=== PATIENT | female | born 1980 | race Caucasian/White ===

== ENCOUNTER 2016-05-19 07:14 | Inpatient (IN) | payer BC ==
[2016-05-18 14:35] VITALS: BMI 27.7
[2016-05-19] MEDS ORDERED: ceFAZolin 2 GM in SODIUM CHLORIDE 0.9% 100 ML IVPB ONE (10:24)
[2016-05-19] MEDS ORDERED: CITRIC ACID-SODIUM CITRATE 15 ML CUP PO ONE (10:24)
[2016-05-19] MEDS ORDERED: LACTATED RINGERS 1,000 ML IV SCH (10:30)
[2016-05-19 10:51] LABS: Basophils # (A) 0.1 k/uL (0-0.2); Basophils % (A) 1 %; CH 31.6; CHCM 33.9; Eosinophils # (A) 0.1 k/uL (0-0.7); Eosinophils % (A) 2 %; HCT 35.7 % (34.0-46.0); HDW 2.96; Luc # (Auto) 0.16; Luc % (Auto) 2; Lymphocytes # (A) 1.5 k/uL (1.0-4.8); Lymphocytes % (A) 17 %; MCH 31.6 pg (25.0-35.0); MCHC 33.6 g/dL (31.0-37.0); MCV 93.9 fL (80.0-100.0); Mean Platelet Volume 8.1; Monocytes # (A) 0.4 k/uL (0-1.0); Monocytes % (A) 5 %; Neutrophils # (A) 6.6 k/uL (1.3-7.7); Neutrophils % (A) 74 %; RBC 3.81 m/uL (3.80-5.40); RDW 13.6 % (11.5-15.5); WBC 8.9 k/uL (3.8-10.6); WBC (Perox) 9.77
--- NOTE | 2016-05-19 12:11 | P.HPOB ---
History of Present Illness H&P Date: 05/19/16 Chief Complaint: 39-2/7 weeks, previous section 2, undesired fertility The patient is a 35-year-old 4 para 2011 admitted at 39-2/7 weeks as established by last menstrual period and confirmed by 8 week ultrasound. She is admitted for repeat low transverse section with intraoperative tubal occlusion using Filshie clips. She has a history of one the salpingectomy in the past by her report. Her has been uncomplicated and group B strep status is negative. She did sign consent for tubal ligation in the office well and advance of surgery. Verbal consent has been reiterated on multiple occasions. Obstetrical history 4 para 2011 with 2 term sections without complications. She did have one early miscarriage requiring D&C. Current statistics are listed in history of present illness. EDC of 2016 was established by last menstrual period and confirmed by 8 week ultrasound. Laboratory workup demonstrates a blood type of O+ with a negative antibody screen. Rubella status is immune. All other laboratory workup was within normal limits. Second trimester Glucola was normal and group B strep status is negative. Gynecologic history is unremarkable with no history of any infections to include STDs. Review of Systems Review of systems is confined to history of present illness. Past Medical History Past Medical History: No Reported History History of Any Multi-Drug Resistant Organisms: None Reported Past Surgical History: Breast Surgery, Section, Orthopedic Surgery Additional Past Surgical History / Comment(s): ovarian torsion. ovary and fallopian tube removed Past Anesthesia/Blood Transfusion Reactions: No Reported Reaction Past Psychological History: No Psychological Hx Reported Smoking Status: Never smoker Past Alcohol Use History: None Reported Past Drug Use History: None Reported - Past Family History Father Family Medical History: Deep Vein Thrombosis (DVT) Medications and Allergies Home Medications Medication Instructions Recorded Confirmed Type #79/Iron Asp Gly/FA#1 1 each PO DAILY 05/18/16 05/18/16 History [Prenate Elite Tablet] Allergies Allergy/AdvReac Type Severity Reaction Status Date / Time No Known Allergies Allergy Verified 05/18/16 14:32 Exam - Vital Signs Vital signs: Vital Signs Temp Pulse Resp BP Pulse Ox 05/19/16 10:23 97.1 F L 95 16 120/75 99 Intake and Output 05/18/16 05/19/16 05/19/16 22:59 06:59 14:59 Other: Weight 90.265 kg Patient Weight 05/20/16 06:59 Weight 90.265 kg In general, this is a well-developed, well-nourished white female in no acute distress. Her heart has a regular rhythm and rate without murmur. Her lungs are clear to auscultation bilaterally in all bobby. Her abdomen is gravid, nondistended, has normal active bowel sounds, is soft, nontender, and without any palpable masses aside from the uterine fundus. Her extremities are without any cyanosis, clubbing, or significant edema and are nontender to palpation bilaterally. Digital cervical examination is deferred. Results Result Diagrams: 05/19/16 10:25 Assessment and Plan (1) Term Status: Acute (2) Previous section Status: Acute (3) Family planning Status: Acute Plan: The patient is admitted for repeat low transverse section with intraoperative tubal occlusion on either one or both sides, whichever is indicated. She has signed a consent to this in the office and reiterated on multiple occasions her desire for tubal ligation. The risks and complications of the procedure have been thoroughly discussed and she has understood and agreed to proceed.
[2016-05-19] MEDS ORDERED: MORPHINE SULFATE (PF) 0.3 MG/0.3 ML SYR ONE (12:18)
[2016-05-19] MEDS ORDERED: ONDANSETRON 4 MG/2 ML VIAL ONE (12:18)
[2016-05-19] MEDS ORDERED: OXYTOCIN 10 UNIT/ML 1 ML VIAL IM ONE (12:18)
[2016-05-19] MEDS ORDERED: ePHEDrine 50 MG/ML 1 ML AMP ONE (12:18)
[2016-05-19] MEDS ORDERED: KETOROLAC 30 MG/ML 1 ML VIAL ONE (12:18)
[2016-05-19] MEDS ORDERED: METOCLOPRAMIDE 5 MG/ML 2 ML VIAL IVP PRN (13:07)
[2016-05-19] MEDS ORDERED: ACETAMINOPHEN TAB 325 MG TAB PO PRN (13:07)
[2016-05-19] MEDS ORDERED: NALOXONE 0.4 MG/ML 1 ML VIAL IV PRN (13:07)
[2016-05-19] MEDS ORDERED: SIMETHICONE 80 MG CHEWABLE PO PRN (13:07)
[2016-05-19] MEDS ORDERED: ONDANSETRON 4 MG/2 ML VIAL IVP PRN (13:07)
[2016-05-19] MEDS ORDERED: ZOLPIDEM 5 MG TAB PO PRN (13:07)
[2016-05-19] MEDS ORDERED: LANOLIN CREAM 5 GM TUBE TOPICAL PRN (13:07)
[2016-05-19] MEDS ORDERED: Acetaminophen-Codeine 300-30mg TAB PO PRN (13:07)
[2016-05-19] MEDS ORDERED: diphenhydrAMINE 50 MG CAP PO PRN (13:07)
[2016-05-19] MEDS ORDERED: diphenhydrAMINE 50 MG/ML 1 ML VIAL IVP PRN ×2 (13:07)
--- NOTE | 2016-05-19 13:15 | P.OP ---
Date of Procedure: 05/19/16 Preoperative Diagnosis: #1. 39-2/7 weeks intrauterine #2. Previous section times to #3. Undesired fertility Postoperative Diagnosis: Same Procedure(s) Performed: #1. Repeat low transverse section #2. Left tubal occlusion with a Filshie clip Anesthesia: spinal Surgeon: Atif Cortes Pool Manager #1: Yvonne Velez Estimated Blood Loss (ml): 800 IV fluids (ml): 1,000 Urine output (ml): 800 Pathology: other (Placenta) Condition: stable Disposition: floor Operative Findings: Intraoperatively, the patient was noted to have minimal to average scarring through the fascial wall and rectus muscles. The lower uterine segment was noted to be very thin at the level of the bladder flap. The right fallopian tube and ovary were surgically absent. The left fallopian tube and ovary were normal to inspection. A Filshie clip was placed across the entire isthmic portion of the fallopian tube approximately 2-3 cm from the cornu. The remainder of the abdominal findings were within normal limits. The placenta was delivered manually, intact, and grossly normal with a grossly normal three- vessel cord. The patient was delivered of a viable 7 lbs. 4 oz. baby girl with Apgars of 9 at 1 minute and 9 at 5 minutes delivered in the right occiput anterior position. Description of Procedure: The patient was prepped and draped in usual fashion after spinal anesthesia was administered by the anesthesiologist. A Pfannenstiel incision was made through pre-existing scar and extended into the abdominal cavity with minimal difficulty. The bladder peritoneum was noted to be distal to the site of the intended incision and was left intact. A 2 cm incision was made in the lower uterine segment at which time the amniotic sac was identified and opened with a hemostat. Clear fluid was noted. The incision was extended in both directions using blunt force. The head was delivered up and through the incision where the nose and mouth were thoroughly suctioned. Remainder of the was delivered onto the field where the cord was doubly clamped, cut, and the infant passed for resuscitative measures with weight and Apgars as noted above. A segment of cord was doubly clamped, cut, and set aside should cord gases become necessary. The placenta was delivered manually and intact as noted above. The uterus was exteriorized and the interior cavity of the uterus swept of any remaining placental or membranous fragments. The margins of the incision were grasped with Bearden clamps and the incision closed in a single running locking stitch of 0 chromic catgut from margin to margin. Once again, the lower uterine segment beneath the level of the incision was noted to be extraordinarily thin. The posterior cul-de-sac was suctioned using a guard. Attention was turned to the left fallopian tube which was the only remaining fallopian tube. A Filshie clip was placed across the entire thickness of the tube and firmly affixed approximately 2-3 cm from the cornu of the uterus across the isthmic portion. The uterus was then replaced within the abdominal cavity and the gutters swept of any remaining blood, fluid, or clot. Any small points of bleeding that were noted along the incision were made hemostatic with the Bovie. Once hemostasis was adequate, the parietal peritoneum was loosely reapproximated in the layer of muscles examined, made hemostatic with the Bovie , and loosely reapproximated with a wide [id number] stitch of 0 chromic catgut. The fascia was closed with 2 running stitches of 0 Vicryl proceeding from the lateral margins to the midpoint. The subcutaneous tissues were irrigated, made hemostatic with the Bovie, and reapproximated with a running stitch of 30 plain catgut. The skin was reapproximated with a running subcuticular stitch of 4-0 Vicryl from margin to margin. This was followed by half-inch Steri-Strips placed with Mastisol. Estimated blood loss for the case is approximately 800 mL. There were no complications. All sponge, instrument, and needle counts were correct. Both mother and are resting comfortably in recovery.
[2016-05-19] MEDS: LACTATED RINGERS 1,000 ML IV SCH ×2 (15:37→22:19)
[2016-05-19] MEDS: Acetaminophen-Codeine 300-30mg TAB PO PRN ×2 (17:05→23:51)
[2016-05-19] MEDS: KETOROLAC 30 MG/ML 1 ML VIAL IVP PRN (19:05)
[2016-05-19] MEDS: SENNOSIDES-DOCUSATE SODIUM 1 EACH TAB PO SCH (19:46)
[2016-05-19] MEDS: OXYTOCIN 30 UNITS/500 ML NS 30 UNIT in SALINE 1 500ML.BAG IV SCH (20:19)
[2016-05-19] MEDS: diphenhydrAMINE 25 MG CAP PO PRN ×2 (22:31→23:52)
[2016-05-20] MEDS: KETOROLAC 30 MG/ML 1 ML VIAL IVP PRN ×4 (02:06→20:55)
[2016-05-20 06:04] LABS: Basophils # (A) 0.1 k/uL (0-0.2); Basophils % (A) 1 %; CH 31.4; CHCM 33.6; Eosinophils # (A) 0.2 k/uL (0-0.7); Eosinophils % (A) 1 %; HCT 31.3 % (34.0-46.0); HDW 2.89; HGB 10.5 gm/dL (11.4-16.0); Luc # (Auto) 0.18; Luc % (Auto) 2; Lymphocytes # (A) 1.5 k/uL (1.0-4.8); Lymphocytes % (A) 14 %; MCH 31.4 pg (25.0-35.0); MCHC 33.4 g/dL (31.0-37.0); MCV 93.9 fL (80.0-100.0); Mean Platelet Volume 7.9; Monocytes # (A) 0.6 k/uL (0-1.0); Monocytes % (A) 5 %; Neutrophils # (A) 8.6 k/uL (1.3-7.7); Neutrophils % (A) 78 %; RBC 3.33 m/uL (3.80-5.40); RDW 13.6 % (11.5-15.5); WBC 11.1 k/uL (3.8-10.6); WBC (Perox) 11.72
[2016-05-20] MEDS: SENNOSIDES-DOCUSATE SODIUM 1 EACH TAB PO SCH ×2 (07:35→20:12)
[2016-05-20] MEDS: Acetaminophen-Codeine 300-30mg TAB PO PRN ×4 (07:40→23:11)
--- NOTE | 2016-05-20 08:33 | P.PN ---
Progress Note - Text Date: 05/20/2016 Time: 700 The patient is status post section Vital signs stable VAS: 0-10 Patient has no complaints of pain. The patient incurred some minimal itching yesterday, this itching is now subsiding. Pain meds to be managed by service.
--- NOTE | 2016-05-20 08:36 | P.PNOBGPC ---
Subjective - Subjective Patient reports: Reports appetite normal, Reports voiding normally, Reports pain well controlled, Reports ambulating normally : doing well, nursing well Objective - Vital Signs Latest vital signs: Vital Signs Temp Pulse Resp BP Pulse Ox 05/20/16 04:00 97.5 F L 76 16 103/59 05/19/16 23:43 97.7 F 87 16 103/80 05/19/16 20:00 97.5 F L 86 16 103/63 05/19/16 16:00 99.0 F 104 H 16 114/71 97 05/19/16 14:55 89 18 116/63 96 05/19/16 14:25 94 16 116/68 97 05/19/16 14:10 89 16 116/60 97 05/19/16 13:40 90 18 128/73 98 05/19/16 13:35 104 H 16 115/70 97 05/19/16 13:20 93 18 114/55 98 05/19/16 13:05 97.0 F L 88 20 120/69 96 05/19/16 10:23 97.1 F L 95 16 120/75 99 Intake and Output 05/19/16 05/20/16 05/20/16 22:59 06:59 14:59 Intake Total 250 600 Output Total 1800 1000 Balance -1550 -400 Intake: IV 250 Lactated Ringers 1,000 ml 250 @ 125 mls/hr IV .[facility] Rx#:[id number] Other 600 Output: Urine 1800 1000 Uretheral (Roche) 1800 - Exam Extremities: Present: normal Abdomen: Present: normal appearance, soft. Absent: distention, tenderness Incision: Present: normal, dry, intact Uterus: Present: normal, firm (The uterine fundus as tonic and nontender below the umbilicus) - Labs Labs: Abnormal Lab Results - Last 24 Hours (Table) 05/20/16 Range/Units 05:43 WBC 11.1 H (3.8-10.6) k/uL RBC 3.33 L (3.80-5.40) m/uL Hgb 10.5 L (11.4-16.0) gm/dL Hct 31.3 L (34.0-46.0) % Neutrophils # 8.6 H (1.3-7.7) k/uL Assessment and Plan (1) Term Current Visit: Yes Status: Acute Code(s): Z34.80 - ENCOUNTER FOR SUPRVSN OF NORMAL , UNSP TRIMESTER SNOMED Code(s): 59659252 (2) Previous section Current Visit: Yes Status: Acute Code(s): Z98.891 - HISTORY OF UTERINE SCAR FROM PREVIOUS SURGERY SNOMED Code(s): 754667389 (3) Family planning Current Visit: Yes Status: Acute Code(s): Z30.09 - ENCOUNTER FOR OT GENERAL CNSL AND ADVICE ON CONTRACEPTION SNOMED Code(s): 15448307 (4) S/P section Narrative/Plan: Continue routine postoperative care. I have encouraged ambulation in the hallways routinely. I anticipate discharge home tomorrow morning at the latest. Current Visit: Yes Status: Acute Code(s): Z98.891 - HISTORY OF UTERINE SCAR FROM PREVIOUS SURGERY SNOMED Code(s): 069322041
[2016-05-20 23:15] VITALS: BP 117/74; PULSE 81; RESP 16; TEMP 97.4
[2016-05-21] MEDS: IBUPROFEN 600 MG TAB PO PRN ×2 (02:56→09:02)
[2016-05-21] MEDS: Acetaminophen-Codeine 300-30mg TAB PO PRN (05:41)
--- NOTE | 2016-05-21 08:36 | P.DS ---
Providers Date of admission: 05/19/16 10:13 Expected date of discharge: 05/21/16 Attending physician: Atif Cortes - Discharge Diagnosis(es) (1) Term Current Visit: Yes Status: Acute (2) Previous section Current Visit: Yes Status: Acute (3) Family planning Current Visit: Yes Status: Acute (4) S/P section Current Visit: Yes Status: Acute Hospital Course: The patient is a 35-year-old 4 para 2011 admitted at 39-2/7 weeks by good dating parameters. She is admitted for repeat low transverse section with tubal occlusion intraoperatively. She does have a history of previous the salpingo-oophorectomy on the right side. Otherwise group B strep status was negative. She was taken the operating room where she underwent repeat low transverse section with left tubal occlusion using a Filshie clip. She was delivered of a viable 7 lbs. 4 oz. baby girl with Apgars of 9 at 1 minute and 9 at 5 minutes. Her postoperative course was entirely unremarkable with vital signs remaining stable and her temperature was afebrile throughout. She was deemed stable for discharge by postoperative day #2 and was discharged home to follow-up in the office in 2 weeks for an incision check and 6 weeks routinely. Discharge instructions included calling for any significantly increased bleeding or foul-smelling lochia, significantly increased fever or abdominal pain, perineal complaints, breast complaints, incisional complaints, or anything else that concerned her. She was additionally instructed to have nothing in the vagina for at least 6 weeks time to include intercourse and to abstain from any heavy lifting over the same period of time. She was last instructed to do no driving until off of all pain medications or 2 weeks' time, whichever came first. She understood her instructions and agrees to follow up as noted above. Discharge medications included a prescription for Tylenol 3, 1-2 by mouth every 6 hours when necessary pain, #30 dispensed with no refills. She was additionally to continued use vitamins daily as she has opted to breast-feed. She will also use [id number] analgesic pain medications as needed. Maternal blood type is O+ and rubella status is immune. Discharge hemoglobin and hematocrit were 10.5 and 31.3 respectively. Procedures: #1. Repeat low transverse section #2. Intraoperative left tubal occlusion with a Filshie clip Patient Condition at Discharge: Good Plan - Discharge Summary New Discharge Prescriptions: Acetaminophen-Codeine 300-30mg [Tylenol #3] 2 tab PO Q6H PRN #30 tablet PRN Reason: Pain Discharge Medication List #79/Iron Asp Gly/FA#1 [Prenate Elite Tablet] 1 each PO DAILY 05/18/16 [ History] Acetaminophen-Codeine 300-30mg [Tylenol #3] 2 tab PO Q6H PRN #30 tablet [Rx] Follow up Appointment(s)/Referral(s): Atif Cortes MD [STAFF PHYSICIAN] - 2 Weeks Discharge Disposition: HOME SELF-CARE
[2016-05-21] MEDS: SENNOSIDES-DOCUSATE SODIUM 1 EACH TAB PO SCH (09:01)
== END 2016-05-21 11:00 | disposition home or self-care (01) | DRG 766 ==
LOC: 4FBP 10:13
PROVIDERS: ADMIT Obstetrics & Gynecology; ATTEND Obstetrics & Gynecology
PROC: 0UL70CZ Occlusion of Bilateral Fallopian Tubes with Extraluminal Device, Open Approach (ICD-10-PCS; principal; 2016-05-19 12:00)
PROC: 10D00Z1 Extraction of Products of Conception, Low, Open Approach (ICD-10-PCS; principal; 2016-05-19 12:00)
DX: O34.211 Maternal care for low transverse scar from previous cesarean delivery (principal); Z30.2 Encounter for sterilization; Z37.0 Single live birth; Z3A.39 39 weeks gestation of pregnancy
CPT/HCPCS: 85025; 86850; 86900; 86901; 88307

== ENCOUNTER 2016-05-25 13:50 | Emergency (ER) | payer BC ==
--- NOTE | 2016-05-25 14:45 | ED ---
General Adult HPI - General Chief complaint: Headache Stated complaint: Spinal Headache (post 05/19/16) Time Seen by Provider: 05/25/16 14:26 Source: patient, RN notes reviewed Mode of arrival: ambulatory Limitations: no limitations - History of Present Illness Initial comments: Patient 35-year-old female who presents emergency room today with chief complaint of a spinal headache. She does admit that she had a and a spinal done 6 days ago. States that yesterday she began having increased headache that was worse with sitting up and standing. He states skin feeling lightheaded and dizzy. States she talked to her MARKETING COMMUNICATION MANAGER who advised to 2 call anesthesiologist. States she was advised coming here to the emergency room to be seen. He admits to headache is worse when she stands up. Better when she lays down. Denies any other complaints or symptoms. Patient denies any recent fever, chills, shortness of breath, chest pain, back pain, abdominal pain, nausea or vomiting, numbness or tingling, dysuria or hematuria, constipation or diarrhea, visual changes, or any other complaints. - Related Data Home Medications Medication Instructions Recorded Confirmed #79/Iron Asp Gly/FA#1 1 tab PO DAILY 05/18/16 05/25/16 [Prenate Elite Tablet] Acetaminophen-Codeine 300-30mg 1 tab PO HS PRN 05/25/16 05/25/16 [Tylenol #3] Ibuprofen [Motrin] 600 mg PO Q6H PRN 05/25/16 05/25/16 Allergies Allergy/AdvReac Type Severity Reaction Status Date / Time No Known Allergies Allergy Verified 05/25/16 15:08 Review of Systems ROS Statement: Those systems with pertinent positive or pertinent negative responses have been documented in the HPI. ROS Other: All systems not noted in ROS Statement are negative. Past Medical History Past Medical History: No Reported History History of Any Multi-Drug Resistant Organisms: None Reported Past Surgical History: Breast Surgery, Section, Orthopedic Surgery Additional Past Surgical History / Comment(s): ovarian torsion. ovary and fallopian tube removed Past Anesthesia/Blood Transfusion Reactions: No Reported Reaction Past Psychological History: No Psychological Hx Reported Smoking Status: Never smoker Past Alcohol Use History: None Reported Past Drug Use History: None Reported - Past Family History Father Family Medical History: Deep Vein Thrombosis (DVT) General Exam - General Exam Comments Initial Comments: General: The patient is awake and alert, in no distress, and does not appear acutely ill. Eye: Pupils are equal, round and reactive to light, extra-ocular movements are intact. No nystagmus. There is normal conjunctiva bilaterally. No signs of icterus. Ears, nose, mouth and throat: There are moist mucous membranes and no oral lesions. Neck: The neck is supple, there is no tenderness or JVD. Cardiovascular: There is a regular rate and rhythm. No murmur, rub or gallop is appreciated. Respiratory: Lungs are clear to auscultation, respirations are non-labored, breath sounds are equal. No wheezes, stridor, rales, or rhonchi. Musculoskeletal: Normal ROM, no tenderness. Strength 5/5. Sensation intact. Pulses equal bilaterally 2+. Neurological: A&O x 3. CN II-XII intact, There are no obvious motor or sensory deficits. Coordination appears grossly intact. Speech is normal. Skin: Skin is warm and dry and no rashes or lesions are noted. Psychiatric: Cooperative, appropriate mood & affect, normal judgment. Limitations: no limitations Course Vital Signs 05/25/16 05/25/16 14:25 14:55 Temperature 98 F Pulse Rate 86 69 Respiratory 16 18 Rate Blood Pressure 137/81 133/88 O2 Sat by Pulse 99 93 L Oximetry Medical Decision Making - Medical Decision Making Patient reexamined at this time shows no signs of distress is resting comfortably. Patient had a blood patch performed by anesthesia here in the emergency room. The recommendation is that patient to lay flat for an hour afterwards given a liter bolus and then discharged home. Patient will be discharged as she is feeling better. Advised follow-up family doctor or MARKETING COMMUNICATION MANAGER over the next 2 days. Advised return for any other concerns. Disposition Clinical Impression: Lumbar puncture headache Disposition: HOME SELF-CARE Condition: Good Instructions: Acute Headache (ED) Additional Instructions: Please follow with your family doctor and MARKETING COMMUNICATION MANAGER over the next 2 days. Please return to emergency room for any other concerns. Time of Disposition: 15:36
[2016-05-25] MEDS ORDERED: SODIUM CHLORIDE 0.9% 1,000 ML IV ONE (15:00)
[2016-05-25 15:02] VITALS: RESP 18
--- NOTE | 2016-05-25 15:04 | P.CON ---
Consult Note - . Assessment/Plan:: epidural blood patch performed at lumbar 2 and lumbar 3 with sterile technique with 20cc autologous blood obtained sterically; patient tolerated the procedure well; no sedation given; local infiltration performed of the skin with 2% lidocaine ; sterile prep performed
[2016-05-25 16:01] VITALS: BP 134/83; PULSE 78; TEMP 98.4
== END 2016-05-25 16:00 | disposition home or self-care (01) ==
LOC: EC 13:50
DX: O89.4 Spinal and epidural anesthesia-induced headache during the puerperium (principal)
CPT/HCPCS: 62273; 96360; 99284

== ENCOUNTER → 2017-06-15 | Outpatient (CLI) | payer BC ==
--- NOTE | 2017-06-15 14:31 | US ---
EXAMINATION TYPE: US thyroid st tissue head/neck DATE OF EXAM: 06/15/2017 COMPARISON: NONE CLINICAL HISTORY: E03.9 Hypothyroidism. GLAND SIZE: Right Lobe: 4.3 x 0.9 x 1.5 cm Overall Parenchyma: heterogenous Left Lobe: 4.1 x 0.6 x 1.3 cm Overall Parenchyma: heterogeneous Isthmus Thickness: 0.3 cm NODULES RIGHT: # of nodules measured on right: 2 1. 0.4 X 0.3 x 0.3 cm hypoechoic solid nodule at the lower pole with well-defined margins; . This nodule is wider than tall and shows intranodular vascularity. Prior size: No previous 2. 0.4 x 0.3 x 0.3 cm hyperechoic solid nodule at the lower pole with well-defined margins; . This n odule is wider than tall and shows intranodular vascularity. Prior size: No previous LEFT: # of nodules measured on left: 0 ISTHMUS: # of nodules measured in the isthmus: 0 Bilateral neck scanned, no evidence of lymphadenopathy. IMPRESSION: Two subcentimeter right thyroid nodules for which surveillance is recommended as these are too small for fine-needle aspiration at this time.
== END | disposition home or self-care (01) ==
LOC: RADUSWWP 13:39
PROVIDERS: ATTEND Family Medicine
DX: E04.2 Nontoxic multinodular goiter (principal); E03.9 Hypothyroidism, unspecified
CPT/HCPCS: 76536

== ENCOUNTER → 2020-10-16 | Outpatient (CLI) | payer BC ==
--- NOTE | 2020-10-17 06:53 | US ---
EXAMINATION TYPE: US thyroid st tissue head/neck DATE OF EXAM: 10/16/2020 COMPARISON: Thyroid ultrasound June 15, 2017 CLINICAL HISTORY: E04.1 Thyroid nodule. follow up thyroid nodules GLAND SIZE: Right Lobe: 4.6 x 1.1 x 1.5 cm Overall Parenchyma: heterogenous Left Lobe: 4.5 x 0.8 x 1.4 cm Overall Parenchyma: heterogeneous Isthmus Thickness: 0.3 cm NODULES RIGHT: # of nodules measured on right: 2 1. 0.5 X 0.3 x 0.5 cm, upper , solid, hypoechoic nodule, which is wider than tall, with smooth annalee ins, without echogenic foci. Prior size: 0.4 x 0.3 x 0.3 cm 2. 0.6 X 0.5 x 0.5 cm, lower , solid, hyperechoic nodule, which is wider than tall, with smooth mar gins, without echogenic foci. Prior size: 0.4 x 0.3 x 0.3 cm LEFT: # of nodules measured on left: 0 ISTHMUS: # of nodules measured in the isthmus: 0 Bilateral neck scanned, no evidence of lymphadenopathy. There is heterogeneous normal-sized thyroid redemonstrated with scattered small nodules, few larger n odules measure 5 to 6 mm marked by the technologist as detailed above. IMPRESSION: No greater than 1 cm suspicious focal nodules. No significant change from prior when acco unting for technical differences
== END | disposition home or self-care (01) ==
LOC: RADUSWWP 16:10
PROVIDERS: ATTEND Family Medicine
DX: E04.2 Nontoxic multinodular goiter (principal)
CPT/HCPCS: 76536

== ENCOUNTER → 2023-04-23 | Outpatient (CLI) | payer BC ==
--- NOTE | 2023-04-23 09:05 | US ---
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 0.6 X 0.6 x 0.4 cm, upper lateral, solid or almost completely solid, isoechoic nodule, which is wider than tall, with smooth margins, without echogenic foci. Prior size: 0.5 x 0.3 x 0.5 cm 2. 0.4 X 0.4 x 0.4 cm, lower lateral, solid or almost completely solid, isoechoic nodule, which is wider than tall, with smooth margins, without echogenic foci. Prior size: 0.6 x 0.5 x 0.5 cm LEFT: # of nodules measured on left: 0 ISTHMUS: # of nodules measured in the isthmus: 0 Bilateral neck scanned, no evidence of lymphadenopathy. IMPRESSION: Nonspecific is subcentimeter right nodularity.
--- NOTE | 2023-04-23 09:43 | US ---
EXAMINATION TYPE: US transvaginal DATE OF EXAM: 04/23/2023 COMPARISON: NONE CLINICAL INDICATION: Female, 42 years old with history of N92.6 IRREGULAR MENSTRUATION; Hx left ovari an torsion with surgical removal. On 3 month control. TECHNIQUE: Transvaginal (TV) Date of LMP: 02/12/2023 EXAM MEASUREMENTS: Uterus: 9.6 x 6.1 x 5.0 cm Endometrial Stripe: 0.8 cm Right Ovary: 2.7 x 1.1 x 0.9 cm 1. Uterus: Anteverted Appears heterogenous 2. Endometrium: wnl 3. Right Ovary: follicle seen 4. Left Ovary: Surgically absent 5. Bilateral Adnexa: prominent vessels in left adnexa 6. Posterior cul-de-sac: no free fluid IMPRESSION: Nonspecific myometrial heterogeneity. 2. Right ovarian follicles.
== END | disposition home or self-care (01) ==
LOC: RADUSWWP 07:09
PROVIDERS: ATTEND Family Medicine
DX: N92.6 Irregular menstruation, unspecified (principal); E04.1 Nontoxic single thyroid nodule; N85.8 Other specified noninflammatory disorders of uterus
CPT/HCPCS: 76536; 76830

== ENCOUNTER → 2023-04-23 | Outpatient (CLI) | payer BC ==
--- NOTE | 2023-04-26 19:29 | MM ---
Reason for Exam: Screening (asymptomatic). Patient History: Menarche at age 16. First Full-Term at age 25. Left ovary removed at age 37. Perimenopausal. 2002, Lumpectomy on the Right side. 2003, Bilateral Implants. Risk Values: Lakesha 5 year model risk: 0.5%. NCI Lifetime model risk: 8.3%. Tissue Density: There are scattered fibroglandular densities. Findings: Analyzed By CAD. Retropectoral saline implants. No significant mass, suspicious microcalcification, or other discrete abnormality is seen. There is no suspicious group of microcalcifications or new suspicious mass in either breast. Overall Assessment: Negative, BI-RAD 1 Management: Screening Mammogram of both breasts in 1 year. . Patient should continue monthly self-breast exams. A clinical breast exam by your physician is recommended on an annual basis. This exam should not preclude additional follow-up of suspicious palpable abnormalities. Note on Lakesha scores and lifetime risk: 1. A Lakesha score greater than 3% is considered moderate risk. If this is the case, consider specialist referral to assess eligibility for a risk reducing agent. 2. If overall lifetime risk for the development of breast cancer is 20% or higher, the patient may qualify for future screening with alternating mammogram and breast MRI. Electronically signed and approved by: Jermain Rogel M.D. Radiologist
== END | disposition home or self-care (01) ==
LOC: RADMAMWWP 07:10
PROVIDERS: ATTEND Family Medicine
DX: Z12.31 Encounter for screening mammogram for malignant neoplasm of breast (principal); Z98.82 Breast implant status
CPT/HCPCS: 77063; 77067